=== PATIENT | female | born 1980 | race Caucasian/White ===

== ENCOUNTER 2021-10-09 00:45 | Inpatient (IN) | payer SELFPAY ==
[~2021-10-09] VITALS: Ht 162.6 cm; Wt 52.6 kg
[2021-10-09] MEDS ORDERED: ONDANSETRON HCL 4MG/2ML INJ IV ONE (01:00)
[2021-10-09] MEDS ORDERED: SODIUM CHLORIDE 0.9% 1,000 ML IV ONE (01:00)
[2021-10-09] MEDS ORDERED: LORAZEPAM 2MG/ML CPJ IV ONE (01:00)
[2021-10-09 01:20] LABS: BASOPHILS % 0.4 % (0.0-2.0); EOSINOPHILS % 1.2 % (0.0-5.0); HEMATOCRIT. 26.6 % (36.0-48.0); HEMOGLOBIN. 8.5 g/dL (12.0-16.0); LYMPHOCYTES % 11.2 % (20.0-50.0); MEAN CORPUSCULAR HEMOGLOBIN 24.2 pg (28.0-32.0); MEAN CORPUSCULAR VOLUME 76.1 fL (81.0-99.0); MEAN PLATELET VOLUME 7.2 fl (7.4-10.4); MONOCYTES % 9.3 % (2.0-8.0); NEUTROPHILS % 77.9 % (40.0-76.0); PLATELET 291 x1000/uL (130-400); RED CELL DISTRIBUTION WIDTH 17.5 % (11.6-14.6)
[2021-10-09 01:24] LABS: CHLORIDE 111 mEq/L (98-107)
[2021-10-09 01:28] LABS: ETHANOL BLOOD < 10 mg/dL
[2021-10-09 01:29] LABS: HCG SCREEN NEGATIVE
[2021-10-09 02:44] LABS: *BARBITURATES SCREEN URINE NEGATIVE (NEGATIVE); *BENZODIAZEPINES SCREEN URINE NEGATIVE (NEGATIVE); *COCAINE SCREEN URINE NEGATIVE (NEGATIVE); CANNABINOID URINE SCREEN NEGATIVE (NEGATIVE); METHADONE URINE SCREEN NEGATIVE (NEGATIVE); OPIATES URINE SCREEN NEGATIVE (NEGATIVE); PHENCYCLIDINE URINE SCREEN NEGATIVE (NEGATIVE)
[2021-10-09 02:46] LABS: *AMPHETAMINES SCREEN URINE PRESUMTIVE POSITIVE (NEGATIVE)
[2021-10-09] MEDS ORDERED: DOCUSATE SODIUM 100MG CAPSULE PO PRN (14:30)
[2021-10-09] MEDS ORDERED: ONDANSETRON HCL 4MG/2ML INJ IV PRN (14:30)
[2021-10-09] MEDS ORDERED: GUAIFENESIN 200MG/10ML SUGAR FREE UDC PO PRN (14:30)
[2021-10-09] MEDS ORDERED: ACETAMINOPHEN 650MG SUPP PR PRN (14:30)
[2021-10-09] MEDS ORDERED: CLONIDINE 0.1MG TABLET PO PRN (14:30)
[2021-10-09 21:00] VITALS: BP_SYST 150; BP_SYST 152; BP_DIAS 95; BP_DIAS 96
[2021-10-09] MEDS: DEXT 5%/0.45% NACL KCL 10MEQ/L 1,000 ML IV SCH (22:49)
[2021-10-09] MEDS: CHLORDIAZEPOXIDE 25MG CAPSULE PO SCH (22:49)
[2021-10-10] VITALS: BP 137/76
[2021-10-10 04:00] VITALS: BP 140/90
[2021-10-10] MEDS: DEXT 5%/0.45% NACL KCL 10MEQ/L 1,000 ML IV SCH (04:30)
[2021-10-10] MEDS: CHLORDIAZEPOXIDE 25MG CAPSULE PO SCH ×3 (05:34→21:22)
[2021-10-10 07:15] LABS: CHLORIDE 104 mEq/L (98-107)
[2021-10-10 07:52] LABS: BASOPHILS % 0.4 % (0.0-2.0); EOSINOPHILS % 3.3 % (0.0-5.0); LYMPHOCYTES % 13.2 % (20.0-50.0); MEAN CORPUSCULAR HEMOGLOBIN 23.2 pg (28.0-32.0); MEAN CORPUSCULAR VOLUME 75.1 fL (81.0-99.0); MEAN PLATELET VOLUME 7.6 fl (7.4-10.4); MONOCYTES % 10.2 % (2.0-8.0); NEUTROPHILS % 72.9 % (40.0-76.0); PLATELET 371 x1000/uL (130-400); RED BLOOD CELL COUNT 4.32 mill/uL (4.2-5.4); RED CELL DISTRIBUTION WIDTH 17.1 % (11.6-14.6)
[2021-10-10 07:58] LABS: HEMATOCRIT. 32.5 % (36.0-48.0)
[2021-10-10 08:00] VITALS: BP 125/79
[2021-10-10] MEDS ORDERED: POTASSIUM CHLORIDE 20MEQ TABLET SR PO NR (09:00)
[2021-10-10 12:00] VITALS: BP 127/76
[2021-10-10 16:00] VITALS: BP 131/84
[2021-10-10 20:00] VITALS: BP 109/64
[2021-10-11] VITALS: BP 133/69
[2021-10-11 04:00] VITALS: BP 121/86
[2021-10-11] MEDS: CHLORDIAZEPOXIDE 25MG CAPSULE PO SCH ×3 (05:50→21:25)
[2021-10-11 08:00] VITALS: BP 162/83
[2021-10-11 12:00] VITALS: BP 133/92
[2021-10-11 16:00] VITALS: BP 140/88
[2021-10-11 20:00] VITALS: BP 153/97
[2021-10-11] MEDS: LORAZEPAM 2MG/ML CPJ IV PRN (21:25)
[2021-10-12] VITALS: BP 120/80
[2021-10-12 04:00] VITALS: BP 123/85
[2021-10-12] MEDS: LORAZEPAM 2MG/ML CPJ IV PRN (05:22)
[2021-10-12] MEDS: CHLORDIAZEPOXIDE 25MG CAPSULE PO SCH (05:22)
[2021-10-12 08:00] VITALS: BP 132/83
[2021-10-12 12:00] VITALS: BP 133/71
[2021-10-12 13:01] VITALS: BP 133/71
== END 2021-10-12 14:15 | disposition home or self-care (01) | DRG 52 ==
LOC: ER 00:45 → 8WST 13:06 → EDBEDREQ 13:08 → EDBEDREQTM 13:08 → ENRESERV 18:14
PROVIDERS: ADMIT Hospitalist; ATTEND Hospitalist
DX: G92.9 Unspecified toxic encephalopathy (principal); G91.9 Hydrocephalus, unspecified; F10.139 Alcohol abuse with withdrawal, unspecified; F19.129 Other psychoactive substance abuse with intoxication, unspecified; Y90.9 Presence of alcohol in blood, level not specified; E11.9 Type 2 diabetes mellitus without complications
CPT/HCPCS: 36415; 70551; 80053; 80305; 80307; 80320; 80329; 82140; 82962; 84703; 85025; 93005; 93970; 99285; J2060; J2405; J7030; G0480

== ENCOUNTER 2021-10-12 15:57 | Emergency (ER) | payer SELFPAY | END 2021-10-12 17:04 | disposition left against medical advice (07) | LOC: ER 15:57 | DX: Z53.21 Procedure and treatment not carried out due to patient leaving prior to being seen by health care provider (principal) ==